=== PATIENT | male | born 1975 | race Caucasian/White ===

== ENCOUNTER 2018-01-24 14:13 | Inpatient (IN) | payer BC ==
[~2018-01-24] VITALS: Ht 172.7 cm; Wt 71.5 kg
--- NOTE | ~2018-01-24 | OP ---
PATIENT NAME: MYESHA LOMAS MEDICAL RECORD: [id number] :79 LOCATION:[id number] ADMISSION DATE:01/24/18 SURGEON: KLARISSA LOPEZ MD DATE OF OPERATION: 01/28/2018 PREOPERATIVE DIAGNOSES: 1. Perianal abscess. 2. Ulcerative colitis. 3. Clostridium difficile colitis. POSTOPERATIVE DIAGNOSES: 1. Perianal abscess. 2. Ulcerative colitis. 3. Clostridium difficile colitis. 4. Right anterior anal fistula. PROCEDURE: Anal exam under anesthesia with Seton placement. SURGEON: Klarissa Lopez MD REPORT OF PROCEDURE: The patient was placed in lithotomy position, and the perianal region was prepped and draped in sterile fashion. Upon initial digital evaluation, there was noted to be a lot of necrotic tissue on the right side of the patient's anus at about the 10 o'clock position. As I penetrated, I could get my finger through the subcutaneous tissues just posterior to the sphincteric musculature. These tissues were essentially liquefied. We irrigated out this area using peroxide and saline solution until we had a good clear return of fluid. At this point, I can inspect and saw there was no sign of any internal abscess cavities extending any further into the patient's pelvis. The sphincter muscle was then tacked. I went ahead and placed a quarter-inch Talha around it and tied it down loosely with a 2-0 silk to work as a Seton and to assist with drainage. We then irrigated out the wound one last time with peroxide and saline solution. We then inspected the remainder of the patient's rectal region. There is no sign of any other masses, lesions, ulcerations, fissures, or fistulas. At this point, 10 mL of 0.25% Marcaine with epinephrine was infused into the surrounding tissues, and the wound was covered up with gauze and an ABD pad. COMPLICATIONS: None. CONDITION: Stable. ANESTHESIA: General endotracheal and local. BLOOD LOSS: 50 mL. TRANSINT:[id number] Voice Confirmation ID: [id number] DOCUMENT ID: [id number] OPERATIVE REPORT [id number] MYESHA LOMAS KLARISSA LOPEZ MD at 1110 CC: [id number] DICTATION DATE: 01/28/18 1152 DOCTOR ASSISTANT: 01/28/18 1305 DIS IN 02/03/18 [facility] [address] [facility] [place] [address]
[2018-01-24] MEDS ORDERED: ORAPRED ODT10 MG/TAB PO (14:24)
[2018-01-24] MEDS ORDERED: APRISO0.375 GM PO (14:25)
[2018-01-24] MEDS ORDERED: LEVSIN/ANASP0.125 MG PO (14:25)
[2018-01-24] MEDS ORDERED: ULTRAM50 MG PO (14:25)
[2018-01-24] MEDS ORDERED: FLAGYL500 MG PO (14:25)
[2018-01-24 15:56] LABS: BASOPHILS 0.1 % (0-2); EOSINOPHILS 0.8 % (0-7); HEMATOCRIT 37.9 % (42.0-54.0); HEMOGLOBIN 12.2 g/dL (13.5-17.5); IMMATURE GRANULOCYTES 0.2 % (0-5); LYMPHOCYTES 14.8 % (15-50); MCH 28.2 pg (26.0-34.0); MCHC 32.2 g/dL (31.0-37.0); MCV 87.5 fL (80.0-100.0); MEAN PLATELET VOLUME 9.1 fL (7.4-10.4); MONOCYTES 6.1 % (2-11); PLATELET COUNT 320 10x3/uL (130-400); RBC 4.33 10x6/uL (4.20-6.10); RDW 14.3 % (11.5-14.5); WBC 12.5 10x3/uL (4.8-10.8)
[2018-01-24 16:07] LABS: INR 1.13 (0.85-1.17); PROTIME 14.1 SECONDS (11.6-15.0)
[2018-01-24 16:11] LABS: ALBUMIN 2.7 g/dL (3.4-5.0); ALKALINE PHOSPHATASE 55 U/L (46-116); ALT (SGPT) 21 U/L (10-68); BILIRUBIN - TOTAL 0.38 mg/dL (0.2-1.3); CALC OSMOLALITY 274 mosm/kg (275-300); CALCIUM 8.5 mg/dL (8.5-10.1); CARBON DIOXIDE 30.1 mmol/L (21.0-32.0); CHLORIDE - SERUM 102 mmol/L (98-107); CREATININE - SERUM 0.7 mg/dL (0.6-1.3); GLUCOSE 124 mg/dL (74-106); POTASSIUM - SERUM 3.6 mmol/L (3.5-5.1); PROTEIN - SERUM 6.4 g/dL (6.4-8.2); SODIUM 138 mmol/L (136-145); UREA NITROGEN 6 mg/dL (7-18); eGFR NON AFRICAN AMERICAN > 90 mL/min (90-120)
[2018-01-24 16:23] LABS: AMYLASE - SERUM 33 U/L (25-115); C-REACTIVE PROTEIN 1.4 mg/dL (0.0-0.9); CKMB 0.1 U/L (0.0-3.6); CREATINE KINASE 57 UL (21-232); LIPASE 75 U/L (73-393); PRO BNP 36 pg/mL (0-125)
[2018-01-24 16:30] LABS: TROPONIN-I < 0.017 ng/mL (0.000-0.060)
[2018-01-24 19:34] LABS: ERYTHROCYTE SEDIMENTATION RATE 36 mm/hr (0-15)
[2018-01-24 22:55] VITALS: BP 119/73
[2018-01-24 23:00] VITALS: BP 114/77
[2018-01-25] VITALS (8 sets, daily range): BP systolic 90–141; BP diastolic 60–96; BMI 23.7
[2018-01-25 07:22] LABS: BASOPHILS 0.3 % (0-2); EOSINOPHILS 1.2 % (0-7); HEMATOCRIT 37.2 % (42.0-54.0); HEMOGLOBIN 11.7 g/dL (13.5-17.5); IMMATURE GRANULOCYTES 0.3 % (0-5); MCH 27.7 pg (26.0-34.0); MCHC 31.5 g/dL (31.0-37.0); MCV 88.2 fL (80.0-100.0); MEAN PLATELET VOLUME 9.3 fL (7.4-10.4); MONOCYTES 8.9 % (2-11); NEUTROPHILS 61.3 % (40-80); PLATELET COUNT 296 10x3/uL (130-400); RBC 4.22 10x6/uL (4.20-6.10); RDW 14.5 % (11.5-14.5)
[2018-01-25 07:31] LABS: WBC 7.3 10x3/uL (4.8-10.8)
[2018-01-25 07:52] LABS: ALBUMIN 2.4 g/dL (3.4-5.0); ALKALINE PHOSPHATASE 45 U/L (46-116); ALT (SGPT) 19 U/L (10-68); BILIRUBIN - TOTAL 0.24 mg/dL (0.2-1.3); CALC OSMOLALITY 281 mosm/kg (275-300); CALCIUM 8.4 mg/dL (8.5-10.1); CARBON DIOXIDE 29.9 mmol/L (21.0-32.0); CHLORIDE - SERUM 108 mmol/L (98-107); CREATININE - SERUM 0.8 mg/dL (0.6-1.3); GLUCOSE 88 mg/dL (74-106); POTASSIUM - SERUM 4.1 mmol/L (3.5-5.1); PROTEIN - SERUM 5.1 g/dL (6.4-8.2); SODIUM 143 mmol/L (136-145); UREA NITROGEN 7 mg/dL (7-18); eGFR NON AFRICAN AMERICAN > 90 mL/min (90-120)
[2018-01-26 03:40] VITALS: BP 122/82
[2018-01-26 06:14] LABS: BASOPHILS 0.1 % (0-2); EOSINOPHILS 0.8 % (0-7); HEMATOCRIT 36.5 % (42.0-54.0); HEMOGLOBIN 11.4 g/dL (13.5-17.5); IMMATURE GRANULOCYTES 0.1 % (0-5); LYMPHOCYTES 17.7 % (15-50); MCH 27.5 pg (26.0-34.0); MCHC 31.2 g/dL (31.0-37.0); MEAN PLATELET VOLUME 8.9 fL (7.4-10.4); MONOCYTES 6.8 % (2-11); NEUTROPHILS 74.5 % (40-80); PLATELET COUNT 275 10x3/uL (130-400); RBC 4.15 10x6/uL (4.20-6.10); RDW 14.5 % (11.5-14.5)
[2018-01-26 06:51] LABS: ALBUMIN 2.4 g/dL (3.4-5.0); ALKALINE PHOSPHATASE 41 U/L (46-116); ALT (SGPT) 18 U/L (10-68); BILIRUBIN - TOTAL 0.33 mg/dL (0.2-1.3); CALC OSMOLALITY 276 mosm/kg (275-300); CALCIUM 7.9 mg/dL (8.5-10.1); CARBON DIOXIDE 30.9 mmol/L (21.0-32.0); CHLORIDE - SERUM 106 mmol/L (98-107); CREATININE - SERUM 0.7 mg/dL (0.6-1.3); GLUCOSE 105 mg/dL (74-106); POTASSIUM - SERUM 3.7 mmol/L (3.5-5.1); PROTEIN - SERUM 5.4 g/dL (6.4-8.2); SODIUM 141 mmol/L (136-145); eGFR NON AFRICAN AMERICAN > 90 mL/min (90-120)
[2018-01-26 06:59] LABS: UREA NITROGEN 2 mg/dL (7-18)
[2018-01-26 08:04] VITALS: BP 124/76
[2018-01-26 14:37] VITALS: Ht 172.7 cm; Wt 71.5 kg
[2018-01-26 16:40] VITALS: BP 126/40
[2018-01-26 20:32] VITALS: BP 128/89
[2018-01-27 00:38] VITALS: BP 131/94
[2018-01-27 07:13] LABS: ALBUMIN 2.8 g/dL (3.4-5.0); ALKALINE PHOSPHATASE 59 U/L (46-116); BILIRUBIN - TOTAL 0.52 mg/dL (0.2-1.3); CALCIUM 8.6 mg/dL (8.5-10.1); CARBON DIOXIDE 30.1 mmol/L (21.0-32.0); CHLORIDE - SERUM 102 mmol/L (98-107); POTASSIUM - SERUM 4.1 mmol/L (3.5-5.1); PROTEIN - SERUM 6.6 g/dL (6.4-8.2); SODIUM 139 mmol/L (136-145)
[2018-01-27 07:15] LABS: ALT (SGPT) 23 U/L (10-68); CALC OSMOLALITY 277 mosm/kg (275-300); CREATININE - SERUM 0.9 mg/dL (0.6-1.3); GLUCOSE 159 mg/dL (74-106); UREA NITROGEN 3 mg/dL (7-18); eGFR NON AFRICAN AMERICAN > 90 mL/min (90-120)
[2018-01-27 07:44] LABS: BASOPHILS 0.1 % (0-2); EOSINOPHILS 0.1 % (0-7); HEMATOCRIT 41.8 % (42.0-54.0); HEMOGLOBIN 13.2 g/dL (13.5-17.5); IMMATURE GRANULOCYTES 0.2 % (0-5); LYMPHOCYTES 6.9 % (15-50); MCHC 31.6 g/dL (31.0-37.0); MCV 88.6 fL (80.0-100.0); MEAN PLATELET VOLUME 9.6 fL (7.4-10.4); MONOCYTES 3.5 % (2-11); NEUTROPHILS 89.2 % (40-80); RBC 4.72 10x6/uL (4.20-6.10); RDW 14.2 % (11.5-14.5)
[2018-01-27 07:45] LABS: PLATELET COUNT 389 10x3/uL (130-400); WBC 13.5 10x3/uL (4.8-10.8)
[2018-01-27 21:29] VITALS: BP 131/88
[2018-01-28] VITALS (14 sets, daily range): BP systolic 114–144; BP diastolic 76–95
[2018-01-28 06:24] LABS: BASOPHILS 0.1 % (0-2); EOSINOPHILS 1.1 % (0-7); HEMATOCRIT 37.2 % (42.0-54.0); HEMOGLOBIN 11.6 g/dL (13.5-17.5); IMMATURE GRANULOCYTES 0.2 % (0-5); LYMPHOCYTES 14.8 % (15-50); MCH 27.6 pg (26.0-34.0); MCHC 31.2 g/dL (31.0-37.0); MCV 88.4 fL (80.0-100.0); MEAN PLATELET VOLUME 9.4 fL (7.4-10.4); MONOCYTES 10.7 % (2-11); NEUTROPHILS 73.1 % (40-80); RBC 4.21 10x6/uL (4.20-6.10); RDW 14.4 % (11.5-14.5)
[2018-01-28 06:29] LABS: PLATELET COUNT 294 10x3/uL (130-400)
[2018-01-28 06:48] LABS: ALBUMIN 2.5 g/dL (3.4-5.0); ALKALINE PHOSPHATASE 49 U/L (46-116); ALT (SGPT) 18 U/L (10-68); BILIRUBIN - TOTAL 0.45 mg/dL (0.2-1.3); CALCIUM 8.4 mg/dL (8.5-10.1); CARBON DIOXIDE 29.9 mmol/L (21.0-32.0); CHLORIDE - SERUM 103 mmol/L (98-107); CREATININE - SERUM 0.8 mg/dL (0.6-1.3); GLUCOSE 116 mg/dL (74-106); PROTEIN - SERUM 5.9 g/dL (6.4-8.2); SODIUM 139 mmol/L (136-145); eGFR NON AFRICAN AMERICAN > 90 mL/min (90-120)
[2018-01-28 06:49] LABS: CALC OSMOLALITY 274 mosm/kg (275-300); POTASSIUM - SERUM 3.4 mmol/L (3.5-5.1); UREA NITROGEN 2 mg/dL (7-18)
[2018-01-29 04:00] VITALS: BP 119/75
[2018-01-29 06:12] LABS: BASOPHILS 0.1 % (0-2); HEMATOCRIT 34.7 % (42.0-54.0); HEMOGLOBIN 10.8 g/dL (13.5-17.5); IMMATURE GRANULOCYTES 0.1 % (0-5); LYMPHOCYTES 15.7 % (15-50); MCH 27.5 pg (26.0-34.0); MCHC 31.1 g/dL (31.0-37.0); MCV 88.3 fL (80.0-100.0); MEAN PLATELET VOLUME 9.3 fL (7.4-10.4); MONOCYTES 12.4 % (2-11); NEUTROPHILS 69.7 % (40-80); PLATELET COUNT 269 10x3/uL (130-400); RBC 3.93 10x6/uL (4.20-6.10); RDW 14.2 % (11.5-14.5); WBC 7.9 10x3/uL (4.8-10.8)
[2018-01-29 06:42] LABS: ALBUMIN 2.2 g/dL (3.4-5.0); ALKALINE PHOSPHATASE 39 U/L (46-116); ALT (SGPT) 18 U/L (10-68); BILIRUBIN - TOTAL 0.48 mg/dL (0.2-1.3); CALC OSMOLALITY 270 mosm/kg (275-300); CALCIUM 7.9 mg/dL (8.5-10.1); CARBON DIOXIDE 31.5 mmol/L (21.0-32.0); CHLORIDE - SERUM 102 mmol/L (98-107); CREATININE - SERUM 0.8 mg/dL (0.6-1.3); GLUCOSE 103 mg/dL (74-106); POTASSIUM - SERUM 3.5 mmol/L (3.5-5.1); PROTEIN - SERUM 5.5 g/dL (6.4-8.2); SODIUM 137 mmol/L (136-145); eGFR NON AFRICAN AMERICAN > 90 mL/min (90-120)
[2018-01-29 06:51] LABS: UREA NITROGEN 4 mg/dL (7-18)
[2018-01-29 09:06] VITALS: BP 121/82
[2018-01-29 11:15] VITALS: BP 118/77
[2018-01-29 21:27] VITALS: BP 129/90
[2018-01-30] VITALS: BP 118/75
[2018-01-30 04:00] VITALS: BP 134/95
[2018-01-30 09:28] LABS: ALBUMIN 2.4 g/dL (3.4-5.0); ALKALINE PHOSPHATASE 51 U/L (46-116); ALT (SGPT) 15 U/L (10-68); BILIRUBIN - TOTAL 0.33 mg/dL (0.2-1.3); CALCIUM 8.1 mg/dL (8.5-10.1); CARBON DIOXIDE 28.9 mmol/L (21.0-32.0); CHLORIDE - SERUM 102 mmol/L (98-107); CREATININE - SERUM 0.7 mg/dL (0.6-1.3); GLUCOSE 129 mg/dL (74-106); POTASSIUM - SERUM 3.7 mmol/L (3.5-5.1); PROTEIN - SERUM 6.1 g/dL (6.4-8.2); SODIUM 137 mmol/L (136-145); eGFR NON AFRICAN AMERICAN > 90 mL/min (90-120)
[2018-01-30 09:30] LABS: BASOPHILS 0.1 % (0-2); EOSINOPHILS 1.9 % (0-7); HEMATOCRIT 37.7 % (42.0-54.0); HEMOGLOBIN 12.1 g/dL (13.5-17.5); IMMATURE GRANULOCYTES 0.1 % (0-5); LYMPHOCYTES 12.4 % (15-50); MCHC 32.1 g/dL (31.0-37.0); MCV 87.3 fL (80.0-100.0); MEAN PLATELET VOLUME 9.4 fL (7.4-10.4); NEUTROPHILS 74.5 % (40-80); RBC 4.32 10x6/uL (4.20-6.10); RDW 14.1 % (11.5-14.5); WBC 8.3 10x3/uL (4.8-10.8)
[2018-01-30 09:31] LABS: CALC OSMOLALITY 271 mosm/kg (275-300); UREA NITROGEN 2 mg/dL (7-18)
[2018-01-30 09:52] LABS: PLATELET COUNT 328 10x3/uL (130-400)
[2018-01-30 16:00] VITALS: BP 109/67
[2018-01-30 20:00] VITALS: BP 131/87
[2018-01-31 06:12] VITALS: BP 125/78
[2018-01-31 07:00] LABS: BASOPHILS 0.1 % (0-2); EOSINOPHILS 2.6 % (0-7); HEMATOCRIT 32.8 % (42.0-54.0); HEMOGLOBIN 10.4 g/dL (13.5-17.5); IMMATURE GRANULOCYTES 0.1 % (0-5); LYMPHOCYTES 13.4 % (15-50); MCH 27.7 pg (26.0-34.0); MCHC 31.7 g/dL (31.0-37.0); MCV 87.5 fL (80.0-100.0); MEAN PLATELET VOLUME 9.1 fL (7.4-10.4); MONOCYTES 9.6 % (2-11); NEUTROPHILS 74.2 % (40-80); RBC 3.75 10x6/uL (4.20-6.10); RDW 14.1 % (11.5-14.5); WBC 7.3 10x3/uL (4.8-10.8)
[2018-01-31 07:11] LABS: PLATELET COUNT 262 10x3/uL (130-400)
[2018-01-31 07:44] LABS: ALKALINE PHOSPHATASE 40 U/L (46-116); ALT (SGPT) 14 U/L (10-68); BILIRUBIN - TOTAL 0.26 mg/dL (0.2-1.3); CALCIUM 7.9 mg/dL (8.5-10.1); CARBON DIOXIDE 27.9 mmol/L (21.0-32.0); CHLORIDE - SERUM 105 mmol/L (98-107); CREATININE - SERUM 0.6 mg/dL (0.6-1.3); GLUCOSE 116 mg/dL (74-106); POTASSIUM - SERUM 3.8 mmol/L (3.5-5.1); PROTEIN - SERUM 5.2 g/dL (6.4-8.2); SODIUM 139 mmol/L (136-145); eGFR NON AFRICAN AMERICAN > 90 mL/min (90-120)
[2018-01-31 07:48] LABS: CALC OSMOLALITY 275 mosm/kg (275-300); UREA NITROGEN 3 mg/dL (7-18)
[2018-01-31 13:16] VITALS: BP 129/85
[2018-01-31 17:05] VITALS: BP 120/85
[2018-02-01 01:28] VITALS: BP 115/79
[2018-02-01 04:19] VITALS: BP 124/84
[2018-02-01 07:16] LABS: BASOPHILS 0.2 % (0-2); EOSINOPHILS 3.7 % (0-7); HEMATOCRIT 33.7 % (42.0-54.0); HEMOGLOBIN 10.6 g/dL (13.5-17.5); IMMATURE GRANULOCYTES 0.4 % (0-5); LYMPHOCYTES 22.9 % (15-50); MCH 27.5 pg (26.0-34.0); MCHC 31.5 g/dL (31.0-37.0); MCV 87.3 fL (80.0-100.0); MONOCYTES 10.4 % (2-11); NEUTROPHILS 62.4 % (40-80); PLATELET COUNT 255 10x3/uL (130-400); RBC 3.86 10x6/uL (4.20-6.10); RDW 14.2 % (11.5-14.5); WBC 5.7 10x3/uL (4.8-10.8)
[2018-02-01 07:30] LABS: ALBUMIN 2.1 g/dL (3.4-5.0); ALKALINE PHOSPHATASE 40 U/L (46-116); BILIRUBIN - TOTAL 0.22 mg/dL (0.2-1.3); CALCIUM 8.2 mg/dL (8.5-10.1); CARBON DIOXIDE 30.5 mmol/L (21.0-32.0); CHLORIDE - SERUM 105 mmol/L (98-107); CREATININE - SERUM 0.7 mg/dL (0.6-1.3); GLUCOSE 111 mg/dL (74-106); POTASSIUM - SERUM 3.6 mmol/L (3.5-5.1); PROTEIN - SERUM 5.4 g/dL (6.4-8.2); SODIUM 141 mmol/L (136-145); eGFR NON AFRICAN AMERICAN > 90 mL/min (90-120)
[2018-02-01 07:35] LABS: ALT (SGPT) 21 U/L (10-68); CALC OSMOLALITY 277 mosm/kg (275-300); UREA NITROGEN 2 mg/dL (7-18)
[2018-02-01 08:20] VITALS: BP 119/85
[2018-02-01 12:16] VITALS: BP 127/87
[2018-02-01 21:22] VITALS: BP 118/83
[2018-02-02 04:16] VITALS: BP 124/84
[2018-02-02 06:32] LABS: BASOPHILS 0.3 % (0-2); EOSINOPHILS 3.1 % (0-7); HEMATOCRIT 34.1 % (42.0-54.0); HEMOGLOBIN 10.8 g/dL (13.5-17.5); IMMATURE GRANULOCYTES 0.3 % (0-5); LYMPHOCYTES 22.8 % (15-50); MCH 27.7 pg (26.0-34.0); MCHC 31.7 g/dL (31.0-37.0); MCV 87.4 fL (80.0-100.0); MEAN PLATELET VOLUME 9.1 fL (7.4-10.4); MONOCYTES 9.8 % (2-11); NEUTROPHILS 63.7 % (40-80); PLATELET COUNT 263 10x3/uL (130-400); RDW 14.2 % (11.5-14.5); WBC 6.5 10x3/uL (4.8-10.8)
[2018-02-02 06:49] LABS: ALBUMIN 2.1 g/dL (3.4-5.0); ALKALINE PHOSPHATASE 44 U/L (46-116); ALT (SGPT) 24 U/L (10-68); BILIRUBIN - TOTAL 0.19 mg/dL (0.2-1.3); CALC OSMOLALITY 276 mosm/kg (275-300); CALCIUM 8.4 mg/dL (8.5-10.1); CARBON DIOXIDE 29.8 mmol/L (21.0-32.0); CHLORIDE - SERUM 106 mmol/L (98-107); CREATININE - SERUM 0.6 mg/dL (0.6-1.3); GLUCOSE 115 mg/dL (74-106); PROTEIN - SERUM 5.4 g/dL (6.4-8.2); SODIUM 140 mmol/L (136-145); eGFR NON AFRICAN AMERICAN > 90 mL/min (90-120)
[2018-02-02 06:54] LABS: UREA NITROGEN 3 mg/dL (7-18)
[2018-02-02 09:42] VITALS: BP 120/80
[2018-02-02 15:09] VITALS: BP 78/43
[2018-02-02 17:29] VITALS: BP 117/83
[2018-02-02 20:35] VITALS: BP 146/88
[2018-02-03 04:00] VITALS: BP 129/89
[2018-02-03 04:56] LABS: BASOPHILS 0.2 % (0-2); EOSINOPHILS 3.5 % (0-7); HEMATOCRIT 34.5 % (42.0-54.0); HEMOGLOBIN 10.9 g/dL (13.5-17.5); IMMATURE GRANULOCYTES 0.2 % (0-5); LYMPHOCYTES 25.9 % (15-50); MCH 27.5 pg (26.0-34.0); MCHC 31.6 g/dL (31.0-37.0); MCV 86.9 fL (80.0-100.0); MEAN PLATELET VOLUME 9.2 fL (7.4-10.4); MONOCYTES 9.7 % (2-11); NEUTROPHILS 60.5 % (40-80); PLATELET COUNT 265 10x3/uL (130-400); RBC 3.97 10x6/uL (4.20-6.10); RDW 14.1 % (11.5-14.5); WBC 5.4 10x3/uL (4.8-10.8)
[2018-02-03 05:21] LABS: ALBUMIN 2.2 g/dL (3.4-5.0); ALKALINE PHOSPHATASE 45 U/L (46-116); ALT (SGPT) 19 U/L (10-68); BILIRUBIN - TOTAL 0.13 mg/dL (0.2-1.3); CALC OSMOLALITY 279 mosm/kg (275-300); CARBON DIOXIDE 29.8 mmol/L (21.0-32.0); CHLORIDE - SERUM 108 mmol/L (98-107); CREATININE - SERUM 0.7 mg/dL (0.6-1.3); GLUCOSE 139 mg/dL (74-106); POTASSIUM - SERUM 3.8 mmol/L (3.5-5.1); PROTEIN - SERUM 5.5 g/dL (6.4-8.2); SODIUM 141 mmol/L (136-145); UREA NITROGEN 3 mg/dL (7-18); eGFR NON AFRICAN AMERICAN > 90 mL/min (90-120)
[2018-02-03 08:28] VITALS: BP 120/84
[2018-02-03 13:35] VITALS: BP 122/86
[2018-02-03] MEDS ORDERED: LEVAQUIN750 MG PO (15:24)
[2018-02-03] MEDS ORDERED: FLAGYL500 MG PO (15:24)
[2018-02-03] MEDS ORDERED: AMOXICILLIN875 MG PO (15:25)
[2018-02-03] MEDS ORDERED: VALTREX500 MG PO (15:26)
[2018-02-03 16:42] VITALS: BP 132/92
[2018-02-03] MEDS ORDERED: DILAUDID2 MG PO (16:53)
[2018-02-28] MEDS ORDERED: FERROUS SULFAT325 MG PO (09:09)
[2018-02-28] MEDS ORDERED: PROBIOTIC BLEN1 EACH PO (09:10)
== END 2018-02-03 17:28 | disposition home or self-care (01) | DRG 348 ==
LOC: D.ER 14:13 → D.MS 21:40 → D.EDHOLD 21:40 → D.MS 01-25 02:44
PROVIDERS: Family Medicine; Family Medicine Adult Medicine; Surgery
PROC: 0DQQXZZ Repair Anus, External Approach (ICD-10-PCS; principal; 2018-01-28 09:15)
DX: K51.90 Ulcerative colitis, unspecified, without complications (principal); K61.1 Rectal abscess; A04.72 Enterocolitis due to Clostridium difficile, not specified as recurrent; D64.9 Anemia, unspecified; B00.1 Herpesviral vesicular dermatitis

== ENCOUNTER 2018-03-01 06:10 | Day surgery (SDC) | payer BC ==
[2018-02-28 09:43] LABS: BASOPHILS 0.4 % (0-2); EOSINOPHILS 2.7 % (0-7); HEMATOCRIT 42.4 % (42.0-54.0); HEMOGLOBIN 13.9 g/dL (13.5-17.5); IMMATURE GRANULOCYTES 0.2 % (0-5); LYMPHOCYTES 37.6 % (15-50); MCH 28.3 pg (26.0-34.0); MCHC 32.8 g/dL (31.0-37.0); MCV 86.4 fL (80.0-100.0); MEAN PLATELET VOLUME 10.2 fL (7.4-10.4); MONOCYTES 7.2 % (2-11); NEUTROPHILS 51.9 % (40-80); RBC 4.91 10x6/uL (4.20-6.10); RDW 13.9 % (11.5-14.5); WBC 5.7 10x3/uL (4.8-10.8)
[2018-02-28 09:47] LABS: PLATELET COUNT 210 10x3/uL (130-400)
[2018-02-28 09:53] LABS: CALC OSMOLALITY 275 mosm/kg (275-300); CALCIUM 8.9 mg/dL (8.5-10.1); CARBON DIOXIDE 29.6 mmol/L (21.0-32.0); CHLORIDE - SERUM 103 mmol/L (98-107); CREATININE - SERUM 0.9 mg/dL (0.6-1.3); GLUCOSE 97 mg/dL (74-106); POTASSIUM - SERUM 4.4 mmol/L (3.5-5.1); SODIUM 139 mmol/L (136-145); UREA NITROGEN 8 mg/dL (7-18); eGFR NON AFRICAN AMERICAN > 90 mL/min (90-120)
[~2018-03-01] VITALS: Ht 175.3 cm; Wt 72.6 kg
--- NOTE | ~2018-03-01 | OP ---
PATIENT NAME: MYESHA LOMAS MEDICAL RECORD: [id number] :79 LOCATION:[facility] ADMISSION DATE: SURGEON: CHICO LOPEZ MD DATE OF OPERATION: 03/01/2018 PREOPERATIVE DIAGNOSES: 1. Anal fistula. 2. Ulcerative colitis. POSTOPERATIVE DIAGNOSES: 1. Anal fistula. 2. Ulcerative colitis. PROCEDURE: Anal exam under anesthesia. SURGEON: Chico Lopez MD REPORT OF PROCEDURE: The patient was placed in lithotomy position and the perianal region was prepped and draped in sterile fashion. A Hill-Bar anoscope was inserted and we inspected the anal cavity. The patient had a seton stitch from a Ringgold placed on the 9 o'clock position through what was a large anal fistula associated with an abscess. The patient's tissue would fill out the abscess and now there was no longer a pocket present. The 2 openings on the distal rectum/anus and the skin had good granulation tissue present. There were no signs of any abscess cavities. The fistula tract was only the size of the Ringgold drain. The Talha was in good position around the sphincteric musculature. I inspected the remainder of the anal cavity and saw no other signs of any abscesses or fistulas present. At this point, we decided to leave the seton stitch in place and discontinued the surgery. COMPLICATIONS: None. CONDITION: Stable. ANESTHESIA: General endotracheal. BLOOD LOSS: Minimal. TRANSINT:[id number] Voice Confirmation ID: [id number] DOCUMENT ID: [id number] CC: Dr. Ny, physician not located. CHICO LOPEZ MD at 1421 CC: KARLOS BETTENCOURT MD [id number] DICTATION DATE: 03/01/1832 LENS MARKER: 03/01/18 09[id number] [place] [address]
[~2018-03-01 06:10] MED LIST: AMOXICILLIN875 MG PO; APRISO0.375 GM PO; DILAUDID2 MG PO; FERROUS SULFAT325 MG PO; FLAGYL500 MG PO; LEVAQUIN750 MG PO; LEVSIN/ANASP0.125 MG PO; ORAPRED ODT10 MG/TAB PO; PROBIOTIC BLEN1 EACH PO; ULTRAM50 MG PO; VALTREX500 MG PO
[2018-03-01 07:11] VITALS: BP 115/76; Ht 175.3 cm; Wt 72.6 kg
== END 2018-03-01 11:30 | disposition home or self-care (01) ==
LOC: D.OPS 06:10 → D.PAN 08:00 → D.OPS 11:30 → D.PAN 12:10
PROVIDERS: Surgery
DX: K60.3 Anal fistula (principal); K51.90 Ulcerative colitis, unspecified, without complications; Z01.812 Encounter for preprocedural laboratory examination

== ENCOUNTER 2018-03-17 06:35 | Day surgery (SDC) | payer BC ==
[~2018-03-17] VITALS: Ht 175.3 cm; Wt 76.2 kg
--- NOTE | ~2018-03-17 | OP ---
PATIENT NAME: MYESHA LOMAS MEDICAL RECORD: [id number] :77 LOCATION:[facility] ADMISSION DATE: SURGEON: CHICO LOPEZ MD DATE OF OPERATION: 03/17/2018 PREOPERATIVE DIAGNOSES: 1. Right lateral anal fistula. 2. Ulcerative colitis. 3. History of perirectal abscess. POSTOPERATIVE DIAGNOSES: 1. Right lateral anal fistula. 2. Ulcerative colitis. 3. History of perirectal abscess. PROCEDURES: 1. Anal exam under anesthesia. 2. Removal of Seton stitch 3. Lateral internal sphincterotomy. 4. Repair of right anal fissure. SURGEON: Chico Lopez MD REPORT OF PROCEDURE: The patient's perianal region was prepped and draped in sterile fashion. An anoscope was inserted and a 360-degree inspection was performed on the 9 o'clock aspect on the right side of the anus. The patient had a large area of granulation tissue from the healing perianal abscess. The patient had a Seton stitch for about a quarter-inch Talha, which was in place and this was removed. There was a small tract that was present around the collection of tissue that was the superior aspect of the patient's internal sphincter muscle. The patient at this point was noted to have a wide-based fissure. I went ahead and just performed a ligation of this sphincter tissue essentially performing a lateral internal sphincterotomy. We then irrigated the wound and removed any excess granulation tissue, which was present. There was an area of bleeding at the base of the wound. The distal rectum, which was oversewn with a [id number] 2-0 chromic. We then took the tissue on each side and using a running 2-0 chromic. We reapproximated the 2 edges of the distal rectum and anoderm essentially closing up the anal fissure. We irrigated out the wound one last time and assured there was no sign of any bleeding. We then inserted a piece of Gelfoam that was dipped in Americaine. COMPLICATIONS: None. CONDITION: Stable. ANESTHESIA: General endotracheal. BLOOD LOSS: 30 mL. TRANSINT:[id number] Voice Confirmation ID: [id number] DOCUMENT ID: [id number] CC: Dr. Ny, not located/unknown physician. OPERATIVE REPORT [id number] MYESHA LOMAS CHICO LOPEZ MD at 1714 CC: KARLOS BETTENCOURT MD [id number] DICTATION DATE: 03/17/18 1000 METAL LATHER: 03/17/18 1037 [facility] [place] 03/17/18 [id number] [place] [address]
[~2018-03-17 06:35] MED LIST changes: +STOOL SOFTENER100 M1 PO
[2018-03-17 06:50] LABS: BASOPHILS 0.3 % (0-2); EOSINOPHILS 2.4 % (0-7); HEMATOCRIT 41.5 % (42.0-54.0); HEMOGLOBIN 13.6 g/dL (13.5-17.5); IMMATURE GRANULOCYTES 0.1 % (0-5); LYMPHOCYTES 21.5 % (15-50); MCH 28.2 pg (26.0-34.0); MCHC 32.8 g/dL (31.0-37.0); MCV 85.9 fL (80.0-100.0); MEAN PLATELET VOLUME 10.2 fL (7.4-10.4); MONOCYTES 8.5 % (2-11); NEUTROPHILS 67.2 % (40-80); PLATELET COUNT 200 10x3/uL (130-400); RBC 4.83 10x6/uL (4.20-6.10); RDW 13.6 % (11.5-14.5); WBC 6.7 10x3/uL (4.8-10.8)
[2018-03-17 06:58] LABS: CALC OSMOLALITY 273 mosm/kg (275-300); CALCIUM 9.1 mg/dL (8.5-10.1); CARBON DIOXIDE 30.5 mmol/L (21.0-32.0); CHLORIDE - SERUM 103 mmol/L (98-107); CREATININE - SERUM 0.9 mg/dL (0.6-1.3); GLUCOSE 103 mg/dL (74-106); POTASSIUM - SERUM 4.1 mmol/L (3.5-5.1); SODIUM 138 mmol/L (136-145); UREA NITROGEN 8 mg/dL (7-18); eGFR NON AFRICAN AMERICAN > 90 mL/min (90-120)
[2018-03-17 07:47] VITALS: BP 100/69; Ht 175.3 cm; Wt 76.2 kg
[2018-03-17] MEDS ORDERED: DILAUDID2 MG PO (09:54)
== END 2018-03-17 11:54 | disposition home or self-care (01) ==
LOC: D.OPS 06:35 → D.PAN 08:45 → D.OPS 09:00 → D.PAN 09:00 → D.OPS 11:54 → D.PAN 12:00 → D.OPS 14:00
PROVIDERS: Surgery
DX: K51.813 Other ulcerative colitis with fistula (principal); K51.814 Other ulcerative colitis with abscess; Z01.812 Encounter for preprocedural laboratory examination

== ENCOUNTER → 2018-03-28 12:32 | Outpatient (CLI) | payer BC ==
[2018-03-17 07:47] VITALS: BMI 24.8
[2018-03-28 13:02] LABS: BASOPHILS 0.4 % (0-2); EOSINOPHILS 2.4 % (0-7); HEMATOCRIT 39.3 % (42.0-54.0); IMMATURE GRANULOCYTES 0.2 % (0-5); LYMPHOCYTES 25.4 % (15-50); MCH 28.3 pg (26.0-34.0); MCHC 33.1 g/dL (31.0-37.0); MCV 85.4 fL (80.0-100.0); MEAN PLATELET VOLUME 10.2 fL (7.4-10.4); MONOCYTES 7.5 % (2-11); NEUTROPHILS 64.1 % (40-80); RDW 13.6 % (11.5-14.5); WBC 8.4 10x3/uL (4.8-10.8)
[2018-03-28 13:15] LABS: PLATELET COUNT 243 10x3/uL (130-400)
[2018-03-28 14:22] LABS: ERYTHROCYTE SEDIMENTATION RATE 11 mm/hr (0-15)
== END | disposition home or self-care (01) ==
LOC: D.LAB 12:32
PROVIDERS: Internal Medicine Gastroenterology
DX: K51.90 Ulcerative colitis, unspecified, without complications (principal)